=== PATIENT | female | born 1970 | race Asian ===

== ENCOUNTER 2019-03-10 10:47 | Emergency (ER) | payer OTHER ==
[~2019-03-10] VITALS: Ht 152.4 cm; Wt 44.9 kg
[2019-03-10 11:01] VITALS: BP_SYST 109
[2019-03-10] MEDS ORDERED: LORazepam 1 MG TABLET PO ONE (11:15)
[2019-03-10 12:26] VITALS: BP_SYST 115
== END 2019-03-10 12:26 | disposition home or self-care (01) ==
LOC: SED 10:47
DX: F41.9 Anxiety disorder, unspecified (principal)
CPT/HCPCS: 99284